=== PATIENT | female | born 1935 | race Caucasian/White ===

== ENCOUNTER 2017-10-20 11:22 | Inpatient (IN) | payer OTHER ==
[~2017-10-20] VITALS: Ht 165.1 cm; Wt 55.8 kg
[2017-10-20 11:31] VITALS: BP_SYST 106
[2017-10-20 12:20] LABS: BASOPHILS % (AUTO) 0.4 % (0.0-2.0); EOSINOPHILS # (AUTO) 0.3 K/uL (0.0-0.4); EOSINOPHILS % (AUTO) 3.2 % (0.0-4.0); HEMATOCRIT 32.6 % (36-48); HEMOGLOBIN 10.8 g/dL (12.0-16.0); LYMPHOCYTES # (AUTO) 1.7 K/uL (1.0-5.5); LYMPHOCYTES % (AUTO) 18.9 % (20.5-51.5); MEAN CORPUSCULAR HEMOGLOBIN 31 pg (27-31); MEAN CORPUSCULAR HGB CONC 33 % (32-36); MEAN CORPUSCULAR VOLUME 92 fL (79.0-98.0); MONOCYTES # (AUTO) 0.5 K/uL (0.0-1.0); MONOCYTES % (AUTO) 5.9 % (1.7-9.3); NEUTROPHILS # (AUTO) 6.4 K/uL (1.8-7.7); NEUTROPHILS % (AUTO) 71.6 % (40.0-70.0); PLATELET COUNT (AUTO) 239 K/uL (130-430); RED BLOOD CELL COUNT(AUTO) 3.55 MIL/uL (4.2-6.2); RED CELL DISTRIBUTION WIDTH 13.2 % (9.0-15.0); WHITE BLOOD COUNT (AUTO) 8.9 K/uL (4.8-10.8)
[2017-10-20] MEDS ORDERED: ALPR0.5T8 (12:33)
[2017-10-20] MEDS ORDERED: OMEG300C3 PO (12:33)
[2017-10-20] MEDS ORDERED: CARV6.2554 PO (12:33)
[2017-10-20] MEDS ORDERED: ASPI-1063 PO (12:33)
[2017-10-20] MEDS ORDERED: TICA90TA PO (12:33)
[2017-10-20] MEDS ORDERED: LOVA40TA75 PO (12:33)
[2017-10-20] MEDS ORDERED: LOSA100T11 PO (12:33)
[2017-10-20] MEDS ORDERED: FAMO20TA8 PO (12:33)
[2017-10-20] MEDS ORDERED: OMEP2.5S PO (12:33)
[2017-10-20] MEDS ORDERED: OCUVITE PO (12:33)
[2017-10-20] MEDS ORDERED: PSYL0.4C2 PO (12:33)
[2017-10-20 13:11] LABS: ANION GAP 13 (5-15); CHLORIDE 102 mmol/L (98-107); POTASSIUM 3.9 mmol/L (3.5-5.1); SODIUM SERUM 136 mmol/L (136-145)
[2017-10-20 13:12] LABS: ALANINE AMINOTRANSFERASE 20 U/L (12-78); ALBUMIN 3.9 g/dL (3.4-4.8); ASPARTATE AMINOTRANSFERASE 18 U/L (10-37); CREATININE 1.02 mg/dL (0.55-1.30); GLUCOSE 122 mg/dL (70-99); TOTAL BILIRUBIN 0.4 mg/dL (0.0-1.0); UREA NITROGEN, BLOOD 22 mg/dL (8-21)
[2017-10-20 14:34] LABS: CLARITY/URINE HAZY (CLEAR); COLOR,URINE YELLOW (YELLOW)
[2017-10-20 14:35] LABS: BILIRUBIN,URINE NEGATIVE (NEGATIVE); BLOOD, URINE TRACE (NEGATIVE); GLUCOSE,URINE NEGATIVE (NEGATIVE); KETONES,URINE NEGATIVE (NEGATIVE); LEUKOCYTE ESTERASE ,URINE 3+ (NEGATIVE); NITRITE, URINE NEGATIVE (NEGATIVE); PROTEIN URINE NEGATIVE (NEGATIVE); UROBILINOGEN,URINE 0.2 (0.2-1.0)
[2017-10-20 14:47] VITALS: BP_SYST 123
[2017-10-20 14:48] LABS: BACTERIA,URINE MANY /HPF (None Seen); MUCUS,URINE 1+ /LPF (None Seen); RBC,URINE 0-3 /HPF (0-3); WBC,URINE >100 /HPF (0-3)
[2017-10-20 16:51] VITALS: BP_SYST 142
[2017-10-20 20:00] VITALS: BP_SYST 125
[2017-10-21] VITALS (7 sets, daily range): BP systolic 101–175
[2017-10-21] MEDS: LEVOFLOXACIN 500 MG TABLET PO SCH (12:38)
[2017-10-21] MEDS ORDERED: SIMVASTATIN 20 MG TABLET PO SCH (18:00)
[2017-10-21] MEDS: CARVEDILOL 6.25 MG TABLET (COREG) PO SCH (18:28)
[2017-10-22 01:14] VITALS: BP_SYST 103
[2017-10-22 04:54] VITALS: BP_SYST 137
[2017-10-22] MEDS ORDERED: NACL 0.9% 1,000 ML IV SCH (07:30)
[2017-10-22 07:50] VITALS: BP_SYST 134
[2017-10-22] MEDS: CARVEDILOL 6.25 MG TABLET (COREG) PO SCH (08:58)
[2017-10-22] MEDS ORDERED: FAMOTIDINE 20 MG TABLET PO SCH (09:00)
[2017-10-22] MEDS ORDERED: ASPIRIN 81 MG TABLET(ECOTRIN) PO SCH (09:00)
[2017-10-22] MEDS ORDERED: LOSARTAN POTASSIUM 50 MG TABLET (COZAAR) PO SCH (09:00)
[2017-10-22] MEDS ORDERED: CLOPIDOGREL BISULFATE 75 MG TABLET PO SCH (09:00)
[2017-10-22 09:40] LABS: BASOPHILS % (AUTO) 0.4 % (0.0-2.0); EOSINOPHILS # (AUTO) 0.2 K/uL (0.0-0.4); EOSINOPHILS % (AUTO) 2.2 % (0.0-4.0); HEMATOCRIT 34.7 % (36-48); HEMOGLOBIN 11.7 g/dL (12.0-16.0); LYMPHOCYTES % (AUTO) 25.3 % (20.5-51.5); MEAN CORPUSCULAR HEMOGLOBIN 31 pg (27-31); MEAN CORPUSCULAR HGB CONC 34 % (32-36); MEAN CORPUSCULAR VOLUME 93 fL (79.0-98.0); MONOCYTES # (AUTO) 0.4 K/uL (0.0-1.0); MONOCYTES % (AUTO) 5.7 % (1.7-9.3); NEUTROPHILS # (AUTO) 5.1 K/uL (1.8-7.7); NEUTROPHILS % (AUTO) 66.4 % (40.0-70.0); PLATELET COUNT (AUTO) 269 K/uL (130-430); RED BLOOD CELL COUNT(AUTO) 3.75 MIL/uL (4.2-6.2); WHITE BLOOD COUNT (AUTO) 7.7 K/uL (4.8-10.8)
[2017-10-22] MEDS: LEVOFLOXACIN 500 MG TABLET PO SCH (11:07)
[2017-10-22 12:27] VITALS: BP_SYST 137
[2017-10-22 12:31] VITALS: BP_SYST 137
[2017-10-22] MEDS ORDERED: LEVO500T20 PO (13:04)
== END 2017-10-22 14:00 | disposition home or self-care (01) | DRG 312 ==
LOC: SED 11:22 → SMU 14:22 → STU 14:25
PROVIDERS: ADMIT Internal Medicine Hospice and Palliative Medicine; ATTEND Internal Medicine Hospice and Palliative Medicine
DX: R55 Syncope and collapse (principal); N39.0 Urinary tract infection, site not specified; I35.0 Nonrheumatic aortic (valve) stenosis; F41.9 Anxiety disorder, unspecified; I10 Essential (primary) hypertension; W19.XXXA Unspecified fall, initial encounter; I25.10 Atherosclerotic heart disease of native coronary artery without angina pectoris; Z90.710 Acquired absence of both cervix and uterus; Z90.13 Acquired absence of bilateral breasts and nipples; Z95.5 Presence of coronary angioplasty implant and graft; Z79.82 Long term (current) use of aspirin; Z79.899 Other long term (current) drug therapy; Y93.89 Activity, other specified; Y92.512 Supermarket, store or market as the place of occurrence of the external cause; Y99.8 Other external cause status
CPT/HCPCS: 36415; 71010; 80053; 81000-TC; 83880; 84484; 85025; 87086; 87186-TC; 93005; 93306; 93880; 99285